=== PATIENT | male | born 1945 | race Caucasian/White ===

== ENCOUNTER → 2023-05-11 16:38 | Outpatient (CLI) | payer OTHER, SELFPAY ==
--- NOTE | 2023-05-11 16:40 | DI.MRI.S_ITS ---
PROCEDURE: MR PELIS WO/W CON INDICATIONS: BPH w urinary obstruction. LUTS. TECHNIQUE: Coronal HASTE, axial T1 FSE with fat saturation, 3-plane nonbreath-hold T2 FSE. After the administration of contrast, dynamic axial, delayed axial and coronal VIBE or 2-D FLASH with fat saturation through the pelvis. Optional diffusion weighted imaging and ADC may be performed. COMPARISON: None. FINDINGS: Image quality: Diffusion weighted and dynamic contrast enhanced images are diagnostic. Prostate: Prostate measures 6.3 x 5.3 x 4.2 centimeters, estimated volume is 73 cc. Transitional zone heterogenous nodules are present, either well encapsulated or mostly encapsulated, compatible with PI-RADS 1 or 2 likely BPH nodules. Overall, the predominant abnormality is BPH, with median lobe hypertrophy at the apex of the bladder. Right apex posterior peripheral zone lesion measures 4 x 4 x 3 millimeters (4/20, 6/10). DWI score 3. T2 score 3. DCE negative. PI-RADS 3. Left apex lateral peripheral zone lesion measures 8 by 8 x 7 millimeters (5/15, 6/16). DWI score 3. T2 score 3. DCE negative. PI-RADS 3. This may represent sequelae of prostatitis. Midline peripheral zone lesion measures 8 x 7 x 6 millimeters (4/17, 5/18). The device core 3. T2 score 3. DCE negative. PI-RADS 3. This may represent fibrosis. Seminal vesicles are clear. No evidence of extracapsular disease. Genitourinary system: Mildly irregular bladder wall thickening, consider cystoscopy correlation. There also diverticula. No evidence of hydronephrosis. Bowel and peritoneum: There are colonic diverticula. No evidence of small bowel obstruction or pathologic ascites. Nodes and vessels: No aneurysmal vessel. No pathologic lymph nodes identified by size criteria. Soft tissues: Unremarkable pelvic wall Bones: No acute or suspicious osseous finding. Degenerative changes are present. IMPRESSION: Multiple subcentimeter PI-RADS 3 peripheral zone lesions as above. Predominant abnormality is prostatomegaly and BPH, with median lobe hypertrophy causing mass effect at the apex of the bladder. No highly suspicious PI-RADS 4 or or 5 lesion. Other findings as above. Dictated by: Cesar Monet M.D. on 05/12/2023 at 16:18 Approved by: Cesar Monet M.D. on 05/12/2023 at 16:31
[2023-05-13 09:09] LABS: PSA Free % 6.7 % (.)
== END ==
PROVIDERS: PCP Family Medicine; Referring Provider Specialist; Visit Provider Specialist
DX: N40.1 Benign prostatic hyperplasia with lower urinary tract symptoms (principal); N13.8 Other obstructive and reflux uropathy; R97.20 Elevated prostate specific antigen [PSA]; N42.9 Disorder of prostate, unspecified; N32.3 Diverticulum of bladder; K57.90 Diverticulosis of intestine, part unspecified, without perforation or abscess without bleeding; Z87.440 Personal history of urinary (tract) infections
CPT/HCPCS: 36415; 72197; 84153; 84154; 87086; A9579

== ENCOUNTER → 2023-06-09 13:59 | Outpatient (CLI) | payer OTHER, SELFPAY | PROVIDERS: PCP Family Medicine; Visit Provider Specialist | DX: N40.1 Benign prostatic hyperplasia with lower urinary tract symptoms (principal); N13.8 Other obstructive and reflux uropathy; R97.20 Elevated prostate specific antigen [PSA]; Z87.440 Personal history of urinary (tract) infections | CPT/HCPCS: 51798; 81002; 87077; 87086; 99215 ==

== ENCOUNTER → 2023-07-20 11:56 | Outpatient (CLI) | payer OTHER, SELFPAY | PROVIDERS: PCP Family Medicine; Visit Provider Specialist | DX: Z87.440 Personal history of urinary (tract) infections (principal); N40.1 Benign prostatic hyperplasia with lower urinary tract symptoms; N13.8 Other obstructive and reflux uropathy; R97.20 Elevated prostate specific antigen [PSA]; Z68.28 Body mass index [BMI] 28.0-28.9, adult | CPT/HCPCS: 51798; 81002; 87086; 99215 ==

== ENCOUNTER → 2023-12-22 13:35 | Outpatient (CLI) | payer OTHER, SELFPAY | PROVIDERS: PCP Family Medicine; Visit Provider Specialist | DX: N40.1 Benign prostatic hyperplasia with lower urinary tract symptoms (principal); N13.8 Other obstructive and reflux uropathy; R97.20 Elevated prostate specific antigen [PSA]; Z87.440 Personal history of urinary (tract) infections | CPT/HCPCS: 51798; 81002; 87077; 87086; 99214 ==

== ENCOUNTER → 2024-01-07 17:43 | Outpatient (CLI) | payer OTHER, SELFPAY ==
--- NOTE | 2024-01-07 18:13 | DI.MRI.S_ITS ---
PROCEDURE: MR PELVIC PROSTATE PROTOCOL INDICATIONS: High prostate specific antigen (PSA) LAB EO TECHNIQUE: Coronal HASTE, axial T1 FSE with fat saturation, 3-plane nonbreath-hold T2 FSE. After the administration of contrast, dynamic axial, delayed axial and coronal VIBE or 2-D FLASH with fat saturation through the pelvis. Diffusion weighted imaging and ADC was performed. COMPARISON: None. FINDINGS: Image quality: Diffusion weighted and dynamic contrast enhanced images are diagnostic. Prostate: Gland size is 5.5 x 7.2 x 3.6 cm; ellipsoid gland volume is 74 mL. Given PSA of 9.0, PSA density is 0.12. The gland is longitudinally ovoid with prominent median lobe hypertrophy superiorly. Ill-defined bandlike hypointensity posteriorly in the peripheral zone at the mid gland to base with indistinct margins on axial imaging corresponds to morphology of central zone on coronal imaging (series 6, image 16). There is minor linear scarring in the right peripheral zone near the apex. Lesion 1: Location: Left anterior transition zone at the mid gland level, on axial series five, image 17 and coronal series six, image nine. Size: 1.3 cm. T2W signal: Moderately hypointense with indistinct and slightly irregular margin DWI signal: Mildly hyperintense ADC signal: Moderately hypointense Enhancement: No Extracapsular extension: No PI-RADS score: Three Genitourinary system: Bladder wall thickness is normal. Prominent, thin-walled left anterior bladder diverticulum. Distal ureters are non distended. Bowel and peritoneum: No pathologic free pelvic fluid. Moderate sigmoid colon diverticulosis. Inferior colon and small bowel loops are normal in caliber. Nodes and vessels: No pelvic or inguinal adenopathy by size criteria. Iliac vessels are normal in caliber. Soft tissues: No inguinal hernias. Bones: Marrow demonstrates normal overall signal, without lesions to suggest metastases. IMPRESSION: There is a 1.3 cm focus of abnormal signal in the left anterior transition zone of the prostate gland. PI-RADS category three. No pelvic lymphadenopathy by size criteria. No aggressive osseous abnormality. Prominent left anterior bladder diverticulum. Dictated by: Irene Berg M.D. on 01/10/2024 at 8:22 Approved by: Irene Berg M.D. on 01/10/2024 at 9:07
[2024-01-07 19:07] LABS: Prostate Specific Antigen 14.6 ng/mL (0.10-4.00)
[2024-01-07 19:26] LABS: Bilirubin Urine UA 1+ (NEGATIVE); Glucose Urine UA NEGATIVE (Negative); Ketones Urine UA 1+ (NEGATIVE); Leukocyte Esterase Urine UA 1+ (NEGATIVE); Nitrite Urine UA POSITIVE (Negative); Occult Blood Urine UA TRACE-INTACT (Negative); Protein Urine UA 1+ (Negative); Specific Gravity Urine UA 1.025 (1.000-1.035); pH Urine UA 5.5 (4.5-8.0)
[2024-01-07 19:29] LABS: Color Urine UA ORANGE
[2024-01-07 19:30] LABS: Appearance Urine UA CLOUDY
[2024-01-07 19:44] LABS: Amorphous Sediment Urine 1+; Bacteria Urine Many (>30); RBC Urine 0-1/HPF (0-5/HPF); Squamous Epithelial Cell Urine 1-5 /HPF (0-5/HPF); Urine Volume 10mL (spun); WBC Urine 10-30/HPF (0-5/HPF)
[2024-01-07 19:45] LABS: Culture Indicated Urine Specimen Cultured; Mucus Urine 1+ (Negative)
[2024-01-07 19:59] LABS: Ictotest Urine Negative (Negative)
== END ==
PROVIDERS: PCP Family Medicine; Referring Provider Specialist; Visit Provider Specialist
DX: R97.20 Elevated prostate specific antigen [PSA] (principal); N40.1 Benign prostatic hyperplasia with lower urinary tract symptoms; N13.8 Other obstructive and reflux uropathy
CPT/HCPCS: 36415; 72197; 81001; 84153; 87077; 87086; A9579

== ENCOUNTER → 2024-02-10 10:26 | Outpatient (CLI) | payer OTHER, SELFPAY | PROVIDERS: PCP Family Medicine; Visit Provider Specialist | DX: Z87.440 Personal history of urinary (tract) infections (principal) | CPT/HCPCS: 87086 ==